=== PATIENT | female | born 1950 | race Caucasian/White ===

== ENCOUNTER 2017-12-28 13:35 | Emergency (ER) | payer OTHER ==
[2017-12-28 13:42] VITALS: BP 153/70; PULSE 68; TEMP 98.6; BMI 45.3
--- NOTE | 2017-12-28 14:19 | PDOC ---
History of Present Illness - General History Source: Patient <Laci Olvera S - Last Filed: 12/28/17 15:34> - General History Source: Patient - History of Present Illness Initial Comments: 12/28/17 14:19 Patient is a 67 F, with PMHx of HTN, who presents today s/p head injury. This morning she states that she was sitting on a rolling chair and fell backwards, hitting head on a stool. She denies blacking out or loss of consciousness. She initially did not have any pain. Four hours later she went to her doctor for a check up. She developed bilateral knee pain, right worse than left, rates 6-7/10 , 9/10 with movement. She is having trouble ambulating due to her knee pain. She states she took Aleve at home and elevated her legs, with little pain relief. She denies radiation of pain. She denies loss of sensation in legs. Shoes Salesperson: Dr. Butler Surgical Hx: cholecystectomy <Kelly Quinones - Last Filed: 12/28/17 15:46> - General Chief Complaint: Injury Stated Complaint: ROGERS KNEE PAIN, RT MORE THAN LEFT Time Seen by Provider: 12/28/17 13:44 Past History - Past Medical History COPD: No GI Disorders: Yes (REFLUX) HTN: Yes Hypercholesterolemia: Yes - Surgical History Cholecystectomy: Yes - Suicide/Smoking/Psychosocial Hx Smoking History: Never smoked Have you smoked in the past 12 months: No Information on smoking cessation initiated: No Hx Alcohol Use: No Drug/Substance Use Hx: No Substance Use Type: None Hx Substance Use Treatment: No <Laci Olvera S - Last Filed: 12/28/17 15:34> <Kelly Quinones - Last Filed: 12/28/17 15:46> - Past Medical History Allergies/Adverse Reactions: Allergies Allergy/AdvReac Type Severity Reaction Status Date / Time No Known Drug Allergies Allergy Verified 04/25/14 07:58 Home Medications: Ambulatory Orders Amlodipine Besylate [Norvasc -] 5 mg PO DAILY 04/20/14 Aspirin [Aspirin EC] 81 mg PO DAILY 04/20/14 Atenolol [Tenormin -] 50 mg PO HS 04/20/14 Losartan/Hydrochlorothiazide [Losartan-Hctz 100-12.5 mg Tab] 1 each PO DAILY Review of Systems - Review of Systems Constitutional: No: Symptoms Reported HEENTM: No: Symptoms Reported Respiratory: No: Symptoms reported Cardiac (ROS): No: Symptoms Reported ABD/GI: No: Symptoms Reported : No: Symptoms Reported Musculoskeletal: Yes: Symptoms Reported (b/l knee dorothy), See HPI, Joint Pain (b/ l knee pain) Integumentary: No: Symptoms Reported Neurological: No: Symptoms reported Endocrine: No: Symptoms Reported <Kelly Quinones - Last Filed: 12/28/17 15:46> *Physical Exam - Vital Signs Last Vital Signs Temp Pulse Resp BP Pulse Ox 98.6 F 68 19 153/70 98 12/28/17 13:35 12/28/17 13:35 12/28/17 13:35 12/28/17 13:35 12/28/17 13:35 <Laci Olvera - Last Filed: 12/28/17 15:34> - Vital Signs Last Vital Signs Temp Pulse Resp BP Pulse Ox 98.6 F 68 19 153/70 98 12/28/17 13:35 12/28/17 13:35 12/28/17 13:35 12/28/17 13:35 12/28/17 13:35 - Physical Exam Comments: 12/28/17 14:21 GENERAL: Well-appearing, well-nourished. No apparent distress.Ambulating with wheelchair at the moment. HEENT: Normocephalic, atraumatic. PERRL, EOM intact. Neck supple. CARDIOVASCULAR: Normal S1, S2. Regular rate and rhythm. PULMONARY: Clear to auscultation bilaterally. ABDOMEN: Morbidly obese, Soft, non-distended, non-tender. EXTREMITIES: b/l knee tenderness and swelling. Normal ROM in all four extremities. No gross deformities. SKIN: Warm, dry. No rash NEUROLOGICAL: No focal neurological deficits. General Appearance: Yes: Nourished, Appropriately Dressed HEENT: positive: ALANNA, Normal ENT Inspection, Pharynx Normal Neck: positive: Supple Cardiovascular: positive: Regular Rhythm, Regular Rate Gastrointestinal/Abdominal: positive: Normal Bowel Sounds, Soft. negative: Tender Extremity: positive: Normal Capillary Refill, Tender (b/l knee), Swelling (b/l knee) Integumentary: positive: Dry, Warm Neurologic: positive: Fully Oriented, Alert <Kelly Quinones - Last Filed: 12/28/17 15:46> ED Treatment Course - RADIOLOGY Radiograph Interpretation: 12/28/17 15:45 B/L knee x-ray Impression: Osteoarthritic changes with no fracture seen. Fullness of the suprapatellar bursa noted on the right suggesting effusion. Soft tissue swelling. Reported by: Willi Mobley MD 12/28/17 15:34 <Kelly Quinones - Last Filed: 12/28/17 15:46> *DC/Admit/Observation/Transfer - Discharge Dispostion Admit: No <Laci Olvera - Last Filed: 12/28/17 15:34> - Attestations Scribe Attestion: 12/28/17 14:25 Documentation prepared by Kelly Quinones, acting as medical information specialist for Laci Olvera MD. <Kelly Quinones - Last Filed: 12/28/17 15:46> Diagnosis at time of Disposition: Knee injuries Qualifiers: Encounter type: initial encounter Laterality: unspecified laterality Qualified Code(s): S89.90XA - Unspecified injury of unspecified lower leg, initial encounter Obesity Qualifiers: Obesity type: due to excess calories Obesity classification: unspecified obesity classification Serious obesity comorbidity presence: without serious comorbidity Qualified Code(s): E66.09 - Other obesity due to excess calories - Discharge Dispostion Disposition: HOME Condition at time of disposition: Stable - Referrals Referrals: Ezequiel Wilson MD [Staff Physician] - - Patient Instructions Printed Discharge Instructions: Knee Sprain Additional Instructions: Elevation, wear the brace at day time, off at night Aleve or advil x 3 /day
== END 2017-12-28 15:45 | disposition home or self-care (01) ==
LOC: FER 13:35
DX: S89.90XA Unspecified injury of unspecified lower leg, initial encounter (principal); E66.09 Other obesity due to excess calories; I10 Essential (primary) hypertension; E78.00 Pure hypercholesterolemia, unspecified; K21.9 Gastro-esophageal reflux disease without esophagitis
CPT/HCPCS: 73560-TC-LT-FY; 73560-TC-RT-FY; 99283-25

== ENCOUNTER 2019-03-06 11:35 | Emergency (ER) | payer OTHER ==
[2019-03-06 11:55] VITALS: TEMP 97.4; BMI 44.6
--- NOTE | 2019-03-06 12:00 | PDOC ---
History of Present Illness - General Chief Complaint: Chest Pain Stated Complaint: GERD/ DIZZNESS/ BACK PAIN Time Seen by Provider: 03/06/19 12:00 History Source: Patient Exam Limitations: No Limitations - History of Present Illness Initial Comments: 03/06/19 12:16 68 year old female with PMH HTN, HLD, obesity, chronic back pain presented to ED for palpitations x15 minutes, now resolved, associated with left arm pain and back pain. Pt stated her symptoms began while she as sitting in the car. She described the arm pain to be located to her left tricep. She described her back pain to be located to her bilateral scapulae, which she stated is where her chronic pain is located. Pt denied chest pain, shortness of breath, fever, chills, nausea, vomiting, abdominal pain. Pt stated she had a normal ECHO and carotid US x1.5 weeks ago. Allergies: NKDA Past History - Past Medical History Allergies/Adverse Reactions: Allergies Allergy/AdvReac Type Severity Reaction Status Date / Time No Known Drug Allergies Allergy Verified 03/06/19 11:51 Home Medications: Ambulatory Orders Amlodipine Besylate [Norvasc -] 5 mg PO DAILY 04/20/14 Aspirin [Aspirin EC] 81 mg PO DAILY 04/20/14 Atenolol [Tenormin -] 50 mg PO HS 04/20/14 Losartan/Hydrochlorothiazide [Losartan-Hctz 100-12.5 mg Tab] 1 each PO DAILY Ibuprofen 600 mg PO TID #20 tablet 12/28/17 Ibuprofen 600 mg PO TID #20 tablet 12/28/17 Methocarbamol [Robaxin -] 500 mg PO TID #21 tablet 12/28/17 Methocarbamol [Robaxin -] 500 mg PO TID #21 tablet 12/28/17 COPD: No GI Disorders: Yes (REFLUX) HTN: Yes Hypercholesterolemia: Yes - Surgical History Cholecystectomy: Yes - Immunization History Immunization Up to Date: Yes - Suicide/Smoking/Psychosocial Hx Smoking History: Never smoked Have you smoked in the past 12 months: No Hx Alcohol Use: No Drug/Substance Use Hx: No Substance Use Type: None Hx Substance Use Treatment: No Review of Systems - Review of Systems Able to Perform ROS?: Yes Comments:: 03/06/19 12:17 General: denied fever, chills, generalized weakness. HEENT: denied sore throat, rhinorrhea, ear pain. Heart: admitted to palpitations. denied chest pain, syncope, diaphoresis. Respiratory: denied shortness of breath, cough, sputum production, hemoptysis. Abdomen: denied abdominal pain, nausea, vomiting, diarrhea, constipation, blood in stool. : denied dysuria, increased urinary frequency, hematuria, urinary incontinence , flank pain. Back: admitted to back pain. Musculoskeletal: admitted to left arm pain. denied joint pain, muscle pain, joint swelling. Neurological: denied headache, dizziness, numbness, tingling, weakness. Skin: denied rash, laceration, abrasion. *Physical Exam - Vital Signs Last Vital Signs Temp Pulse Resp BP Pulse Ox 97.4 F L 78 18 164/60 99 03/06/19 11:52 03/06/19 11:52 03/06/19 11:52 03/06/19 11:52 03/06/19 11:52 - Physical Exam Comments: 03/06/19 12:18 Constitutional: Well-nourished, Well-developed, appearing stated age. HEENT: head is normocephalic, atraumatic. EOMI. PERRLA. Neck: supple. Full ROM. Heart: regular rhythm. no murmurs, rubs or gallops. Lungs: clear to auscultation bilaterally. no crackles, rhonchi or wheezing. no stridor. Abdomen: soft, nontender. normal bowel sounds. no rebound, guarding, masses. Extremities: peripheral pulses intact. 1+ pitting LE edema bilaterally. Neurological: CN 2-12 grossly intact. moves all four extremities. Psych: awake, alert, oriented x3. follows commands. answers questions appropriately. ED Treatment Course - LABORATORY CBC & Chemistry Diagram: 03/06/19 12:14 03/06/19 12:14 Medical Decision Making - Medical Decision Making 03/06/19 12:18 68 year old female with above PMH presented to ED for palpitations x15 minutes associated with left arm pain and upper bilateral back pain. Initial Vital Signs Temp Pulse Resp BP Pulse Ox 97.4 F L 78 18 164/60 99 03/06/19 11:52 03/06/19 11:52 03/06/19 11:52 03/06/19 11:52 03/06/19 11:52 Afebrile. No tachycardia. No tachypnea. Mild hypertension. No hypoxia on room air. Labs ordered: CBC, CMP, troponin, TSH Imaging ordered: CXR Medications ordered: none EKG performed at 1156: rate 76, regular rhythm, left axis, LBBB, no acute ST changes. Prior EKG comparison performed 04/25/14: LBBB. similar. 03/06/19 12:45 CBC WBC 5.6 K/mm3 (4.0-10.0) 03/06/19 12:14 RBC 4.68 M/mm3 (3.60-5.2) 03/06/19 12:14 Hgb 13.4 GM/dL (10.7-15.3) 03/06/19 12:14 Hct 40.4 % (32.4-45.2) 03/06/19 12:14 MCV 86.4 fl (80-96) 03/06/19 12:14 MCH 28.7 pg (25.7-33.7) 03/06/19 12:14 MCHC 33.2 g/dl (32.0-36.0) 03/06/19 12:14 RDW 13.5 % (11.6-15.6) 03/06/19 12:14 Plt Count 224 K/MM3 (134-434) D 03/06/19 12:14 MPV 10.9 fl (7.5-11.1) 03/06/19 12:14 Absolute Neuts (auto) 3.5 K/mm3 (1.5-8.0) 03/06/19 12:14 Neutrophils % 62.7 % (42.8-82.8) 03/06/19 12:14 Lymphocytes % 26.1 % (8-40) 03/06/19 12:14 Monocytes % 9.9 % (3.8-10.2) 03/06/19 12:14 Eosinophils % 0.6 % (0-4.5) 03/06/19 12:14 Basophils % 0.7 % (0-2.0) 03/06/19 12:14 Nucleated RBC % 0 % (0-0) 03/06/19 12:14 No leukocytosis. No anemia. 03/06/19 13:00 CMP Sodium 140 mmol/L (136-145) 03/06/19 12:14 Potassium 3.8 mmol/L (3.5-5.1) 03/06/19 12:14 Chloride 108 mmol/L (98-107) H 03/06/19 12:14 Carbon Dioxide 25 mmol/L (21-32) 03/06/19 12:14 Anion Gap 7 MMOL/L (8-16) L 03/06/19 12:14 BUN 22 mg/dL (7-18) H 03/06/19 12:14 Creatinine 0.7 mg/dL (0.55-1.3) 03/06/19 12:14 Est GFR (CKD-EPI)AfAm 103.18 03/06/19 12:14 Est GFR (CKD-EPI)NonAf 89.03 03/06/19 12:14 Random Glucose 97 mg/dL (74-106) 03/06/19 12:14 Calcium 9.6 mg/dL (8.5-10.1) 03/06/19 12:14 Magnesium 2.5 mg/dL (1.8-2.4) H 03/06/19 12:14 Total Bilirubin 0.5 mg/dL (0.2-1) 03/06/19 12:14 AST 18 U/L (15-37) 03/06/19 12:14 ALT 35 U/L (13-61) 03/06/19 12:14 Alkaline Phosphatase 72 U/L (45-117) 03/06/19 12:14 Troponin I < 0.02 ng/ml (0.00-0.05) 03/06/19 12:14 Total Protein 7.4 g/dl (6.4-8.2) 03/06/19 12:14 Albumin 3.9 g/dl (3.4-5.0) 03/06/19 12:14 TSH 1.74 uIU/ml (0.358-3.74) 03/06/19 12:14 No electrolyte abnormalities. No LUCIO. No transaminitis. Troponin within normal limits. Normal TSH. CXR report: no evidence of active pulmonary disease. Pt reported no recurrence of symptoms. Pt instructed to follow up with cardiology and PCP. Disposition: Discharge Discharge medications: none *DC/Admit/Observation/Transfer Diagnosis at time of Disposition: Palpitations - Discharge Dispostion Disposition: HOME Condition at time of disposition: Stable Decision to Admit order: No - Referrals Referrals: Ezequiel Nuñez MD [Primary Care Provider] - - Patient Instructions Printed Discharge Instructions: DI for Palpitations Additional Instructions: You were seen today for palpitations. Your lab work was normal. Your EKG was similar to prior. Your Chest X-ray was normal. Follow up with your youth care specialist within 2-3 days. Your care is not complete until you follow up. Follow up with your primary care doctor within 2-3 days. Your care is not complete until you follow up. Bring all paperwork given to you today to your appointments. Bring all medication you are currently taking to your appointments. Return to the Emergency Department for palpitations, chest pain, severe back pain, lightheadedness like you may pass out, passing out, fever, vomiting or any other new, worsening or concerning symptoms. - Post Discharge Activity Forms/Work/School Notes: Back to Work
[2019-03-06 12:23] LABS: BASO % 0.7 % (0-2.0); EOS % 0.6 % (0-4.5); HEMATOCRIT 40.4 % (32.4-45.2); HEMOGLOBIN 13.4 GM/dL (10.7-15.3); LYMPH % 26.1 % (8-40); MCH 28.7 pg (25.7-33.7); MCHC 33.2 g/dl (32.0-36.0); MEAN CELL VOLUME 86.4 fl (80-96); MEAN PLT VOLUME 10.9 fl (7.5-11.1); MONO % 9.9 % (3.8-10.2); NEUT % 62.7 % (42.8-82.8); PLATELET COUNT 224 K/MM3 (134-434); RBC 4.68 M/mm3 (3.60-5.2); RDW 13.5 % (11.6-15.6); WHITE BLOOD COUNT 5.6 K/mm3 (4.0-10.0)
[2019-03-06 12:57] LABS: ALBUMIN 3.9 g/dl (3.4-5.0); ALK PHOS 72 U/L (45-117); ANION GAP 7 MMOL/L (8-16); BILIRUBIN,TOTAL 0.5 mg/dL (0.2-1); BLOOD UREA NITROGEN 22 mg/dL (7-18); CALCIUM 9.6 mg/dL (8.5-10.1); CHLORIDE 108 mmol/L (98-107); CO2 25 mmol/L (21-32); CREATININE 0.7 mg/dL (0.55-1.3); GLUCOSE,RANDOM 97 mg/dL (74-106); MAGNESIUM 2.5 mg/dL (1.8-2.4); POTASSIUM 3.8 mmol/L (3.5-5.1); SGOT/AST 18 U/L (15-37); SGPT/ALT 35 U/L (13-61); SODIUM 140 mmol/L (136-145); TOT PROT 7.4 g/dl (6.4-8.2)
--- NOTE | 2019-03-06 13:32 | PDOC ---
Documentation entered by Argentina Mcfadden SCRIBE, acting as scribe for Evette Lou MD. Evette Lou MD: This documentation has been prepared by the scribe, Argentina Mcfadden SCRIBE, under my direction and personally reviewed by me in its entirety. I confirm that the documentation accurately reflects all work, treatment, procedures, and medical decision making performed by me. Attending Attestation - Resident Resident Name: Sobeida Can - ED Attending Attestation I have performed the following: I have examined & evaluated the patient, The case was reviewed & discussed with the resident, I agree w/resident's findings & plan, Exceptions are as noted - HPI HPI: 03/06/19 12:37 The patient is a 68 year old female with past medical history of hypertension, hyperlipidemia, obesity, and chronic upper back pain who presents to the ED after an episode of palpitations today. Patient states they came on suddenly while she was in the car and lasted for 15 minutes and resolved on their own. She did not experience any associated shortness of breath, chest pain, lightheadedness, dizziness, and she did not lose consciousness. In the ED she complains of her chronic back pain but denies any other complaints. Denies any recent travel, sick contacts, fevers, or chills. PCP: Dr. Ezequiel Nuñez - Physicial Exam PE: GENERAL: Awake, alert, and fully oriented, in no acute distress. Obese HEAD: No signs of trauma EYES: PERRLA, EOMI, sclera anicteric, conjunctiva clear ENT: Auricles normal inspection, hearing grossly normal, nares patent, oropharynx clear without exudates. Moist mucosa NECK: Normal ROM, supple, no lymphadenopathy, JVD, or masses LUNGS: Breath sounds equal, clear to auscultation bilaterally. No wheezes, and no crackles HEART: Regular rate and rhythm, normal S1 and S2, no murmurs, rubs or gallops ABDOMEN: Soft, nontender, normoactive bowel sounds. No guarding, no rebound. No masses EXTREMITIES: Normal range of motion, no edema. No clubbing or cyanosis. No cords, erythema, or tenderness NEUROLOGICAL: Cranial nerves II through XII grossly intact. Normal speech, normal gait. Motor and sensation intact SKIN: Warm, Dry, normal turgor, no rashes or lesions noted. - Medical Decision Making Pt presents with palpitations this morning. She took nyquil for a URI last night , did not feel well when she woke up. No cp. Symptoms are very atypical for ACS and her trop is negative. TSH is in normal range. Stable for DC home with outpatient f/u. She is following up with Dr. Streeter.
[2019-03-06 13:40] VITALS: BP 130/64; PULSE 58
--- NOTE | 2019-03-07 12:10 | EKG ---
Test Reason : Blood Pressure : / mmHG Vent. Rate : 076 BPM Atrial Rate : 076 BPM P-R Int : 144 ms QRS Dur : 142 ms QT Int : 438 ms P-R-T Axes : 069 -11 072 degrees QTc Int : 492 ms NORMAL SINUS RHYTHM LEFT BUNDLE BRANCH BLOCK ABNORMAL ECG WHEN COMPARED WITH ECG OF 25-APR-2014 11:07, QRS DURATION HAS DECREASED NONSPECIFIC T WAVE ABNORMALITY NO LONGER EVIDENT IN INFERIOR LEADS Confirmed by MD Louis, Isiah ([id number]) on 03/07/2019 12:10:08 PM Referred By: Confirmed By:Isiah Myers MD
== END 2019-03-06 13:46 | disposition home or self-care (01) ==
LOC: JER 11:35
DX: R00.2 Palpitations (principal); I10 Essential (primary) hypertension; E78.5 Hyperlipidemia, unspecified; E66.9 Obesity, unspecified; G89.29 Other chronic pain
CPT/HCPCS: 36415; 71045-TC-FY; 80053; 83735; 84443; 84484; 85025; 93005; 93010; 99284-25

== ENCOUNTER 2019-11-22 11:18 | Emergency (ER) | payer OTHER ==
[2019-11-22 11:43] VITALS: BP 159/78; PULSE 65; TEMP 98.7; BMI 37.8
--- NOTE | 2019-11-22 12:16 | PDOC ---
History of Present Illness - General Chief Complaint: Pain Stated Complaint: RIGHT NECK PAIN FOR 1 WEEK History Source: Patient Exam Limitations: No Limitations - History of Present Illness Initial Comments: 11/22/19 12:11 60-year-old female history of hypertension hyperlipidemia obesity chronic upper back pain here today complaining of right lateral neck and trapezial pain. Patient states her symptoms started several days ago. She was referred to see a neurologist Dr. Jesús vega, has called to make an appointment but is unable to be seen until 7 days from today. She has been taking anti-inflammatory similar to ibuprofen 600 mg every 8 hours for pain with some relief last taken 3 hours prior to arrival. Denies any new numbness or weakness. Pain is worse with turning to the right and movement no recent trauma however states she did have a fall with a subsequent knee injury over a year ago. No focal weakness no chest pain no shortness of breath no other current complaints Past History - Past Medical History Allergies/Adverse Reactions: Allergies Allergy/AdvReac Type Severity Reaction Status Date / Time No Known Drug Allergies Allergy Verified 03/06/19 11:51 codeine AdvReac Intermediate Nausea Verified 11/22/19 11:22 Home Medications: Ambulatory Orders Amlodipine Besylate 5 mg PO DAILY 11/22/19 Aspirin [Ecotrin] 81 mg PO DAILY 11/22/19 Diazepam [Valium] 5 mg PO Q8H PRN #15 tablet MDD 3 11/22/19 Fenofibrate Nanocrystallized [Fenofibrate] 1 tab PO HS 11/22/19 Fenoprofen Calcium 600 mg PO PRN 11/22/19 Hydrochlorothiazide [Hctz -] 25 mg PO DAILY 11/22/19 Losartan Potassium 1 tab PO DAILY 11/22/19 COPD: No GI Disorders: Yes (REFLUX) HTN: Yes Hypercholesterolemia: Yes - Surgical History Cholecystectomy: Yes - Immunization History Immunization Up to Date: Yes - Psycho Social/Smoking Cessation Hx Smoking History: Never smoked Have you smoked in the past 12 months: No Hx Alcohol Use: No Drug/Substance Use Hx: No Substance Use Type: None Hx Substance Use Treatment: No Review of Systems - Review of Systems Constitutional: No: Diaphoresis, Fever Respiratory: No: Cough, Orthopnea Cardiac (ROS): No: Chest Pain ABD/GI: No: Abdominal Distended Musculoskeletal: Yes: Muscle Pain, Neck Pain Integumentary: No: Bruising, Change in Color Neurological: No: Headache, Numbness, Paresthesia, Weakness All Other Systems: Reviewed and Negative *Physical Exam - Vital Signs Last Vital Signs Temp Pulse Resp BP Pulse Ox 98.7 F 65 16 159/78 100 11/22/19 11:21 11/22/19 11:21 11/22/19 11:21 11/22/19 11:21 11/22/19 11:21 - Physical Exam 11/22/19 12:12 Awake alert no acute distress patient has no midline spinal tenderness. She does have paraspinal muscle spasm the lower cervical level and trapezial muscle spasm. Full range of motion with head turning to the right and left. Patient has 5 out of 5 symmetric strength testing on arm extension flexion abduction abduction median ulnar and radial nerves appear to be intact. Sensation is intact throughout bilateral upper extremities. Gait is normal speech is clear lung exam is clear bilaterally heart is regular murmurs rubs or gallops skin is warm and dry no rash Medical Decision Making - Medical Decision Making 11/22/19 12:13 68-year-old female history of hypertension hyperlipidemia chronic back pain here today with right trapezial muscle spasm and upper neck pain. Neurologically patient is fully intact bilateral upper extremities. Plan we will add a muscle relaxer to her medications recommended to continue anti- inflammatory in addition to Tylenol. Told to follow-up with Dr. Jesús klein in 1 week as scheduled return for any new weakness numbness or any other concerns patient will be given a prescription for Valium 5 mg given first dose here in the ED Discharge - Discharge Information Problems reviewed: Yes Clinical Impression/Diagnosis: Trapezius muscle spasm Condition: Good Disposition: HOME - Admission No - Additional Discharge Information Prescriptions: Diazepam [Valium] 5 mg PO Q8H PRN #15 tablet MDD 3 PRN Reason: Muscle Spasms - Follow up/Referral Referrals: Ezequiel Nuñez MD [Primary Care Provider] - Ezequiel Anaya MD [Staff Physician] - - Patient Discharge Instructions Patient Printed Discharge Instructions: Neck Pain (Alternative Therapy), DI for Muscle Spasm Additional Instructions: you can take valium 5 mg every 8 hours as needed for muscle spasm. you can additionally take antiinflammatory medication as needed every 8 hours for pain. you can also take tylenol 500 mg every 6 hours as needed for pain. return for worsening pain weakness or any concerns. follow up with dr Anaya as scheduled for next week. - Post Discharge Activity
[2019-11-22] MEDS ORDERED: diazePAM 5 MG TABLET PO ONE (12:24)
[2019-11-22] MEDS ORDERED: ACETAMINOPHEN 325 MG TABLET (FP) PO ONE (12:24)
[2019-11-22] MEDS ORDERED: ACETAMINOPHEN 325 MG TABLET (FP) ONE (12:28)
[2019-11-22] MEDS ORDERED: diazePAM 5 MG TABLET ONE (12:29)
== END 2019-11-22 12:43 | disposition home or self-care (01) ==
LOC: FER 11:18
DX: M62.830 Muscle spasm of back (principal); Z88.6 Allergy status to analgesic agent; I10 Essential (primary) hypertension; E78.5 Hyperlipidemia, unspecified; G89.29 Other chronic pain
CPT/HCPCS: 99282-25

== ENCOUNTER 2023-10-16 15:12 | Emergency (ER) | payer OTHER ==
[2023-10-16 15:17] VITALS: BP 186/80; PULSE 80; RESP 16; TEMP 97.6; BMI 42.5
== END 2023-10-16 15:55 | disposition home or self-care (01) ==
LOC: FER 15:12
DX: M54.50 Low back pain, unspecified (principal); R20.2 Paresthesia of skin; M79.604 Pain in right leg
CPT/HCPCS: 99283-25